=== PATIENT | female | born 1960 | race Caucasian/White ===

== ENCOUNTER → 2016-04-12 | Outpatient (CLI) | payer OTHER ==
[~2016-04-12] VITALS: Ht 157.5 cm; Wt 52.6 kg
[~2016-04-12] MED LIST: CALCIUM 500 +1 EAC2 PO; CYMBALTA30 MG PO; CYMBALTA60 MG PO; DESYREL 150 MG150 MG PO; ERGOCALCIF50000 UNIT PO; KLONOPIN1 MG PO; KLONOPIN2 M1 PO; KLONOPIN2 MG PO; PLAQUENIL200 MG PO; TOPAMAX100 MG PO; TRAZAMINE CONVE50 MG; VIBRAMYCIN100 MG PO; WELLBUTRIN SR150 MG PO; WELLBUTRIN XL300 MG PO; [UNRECOGNIZED DRUG - REMARK]
== END | disposition home or self-care (01) ==
LOC: AMB 06:51
DX: Z12.11 Encounter for screening for malignant neoplasm of colon (principal); R13.10 Dysphagia, unspecified; Z80.0 Family history of malignant neoplasm of digestive organs; K63.5 Polyp of colon; K62.1 Rectal polyp; F31.31 Bipolar disorder, current episode depressed, mild; I10 Essential (primary) hypertension; M06.9 Rheumatoid arthritis, unspecified; F17.200 Nicotine dependence, unspecified, uncomplicated; Z98.1 Arthrodesis status; Z82.49 Family history of ischemic heart disease and other diseases of the circulatory system; Z83.3 Family history of diabetes mellitus; Z83.49 Family history of other endocrine, nutritional and metabolic diseases; Z88.1 Allergy status to other antibiotic agents; Z88.2 Allergy status to sulfonamides; Z88.5 Allergy status to narcotic agent
CPT/HCPCS: 88305; 93005; J3010

== ENCOUNTER 2016-07-24 18:50 | Emergency (ER) | payer OTHER ==
[~2016-07-24] VITALS: Ht 157.5 cm; Wt 54.2 kg
[2016-07-24 19:59] LABS: HEMATOCRIT 39.5 % (36.0-46.0); MCH 28.6 PG (29.0-34.0); MCHC 33.4 G/DL (30.0-36.0); MCV 85.7 FL (83-99); MEAN PLAT.VOLUME 9.8 uM^3 (9.5-12.4); PLATELET COUNT 185 K/uL (156-360); RBC DIS.WIDTH-CV 12.1 % (11.8-14.6); RBC DIS.WIDTH-SD 37.9 % (39-53); RED BLOOD COUNT 4.61 M/uL (3.80-5.20); WHITE BLOOD COUNT 7.4 K/uL (4.1-10.2)
[2016-07-24 20:09] LABS: ADD MIUA? YES; BILIRUBIN NEGATIVE; BLOOD NEGATIVE; COLOR YELLOW ((YELLOW)); GLUCOSE (STRIP) NEGATIVE; KETONES NEGATIVE; LEUKOCYTES SMALL; NITRITE NEGATIVE; PROTEIN (STRIP) NEGATIVE; SPECIFIC GRAVITY 1.009 (1.000-1.030); UROBILINOGEN 0.2 MG/DL (0.2-1.0)
[2016-07-24 20:15] LABS: BACTERIA NONE SEEN /HPF; EPITHELIAL CELLS NONE SEEN /HPF; MUCUS TRACE /LPF; RED BLOOD CELLS 0-5 /HPF (0-5); WHITE BLOOD CELLS 0-5 /HPF (0-5)
[2016-07-24 20:33] LABS: CHLORIDE 105 mEq/L (99-109); POTASSIUM 3.5 mEq/L (3.7-5.4); SODIUM 138 mEq/L (136-147)
[2016-07-24 20:35] LABS: GLUCOSE 85 mg/dL (70-99)
[2016-07-24 20:37] LABS: ANION GAP 9 MEQ/L (2-14); TOTAL BILIRUBIN 0.4 mg/dL (0.0-1.0)
[2016-07-24 20:39] LABS: ALKALINE PHOSPHATASE 61 IU/L (3-129); GFR ESTIMATE (CALCULATED) 50 mL/min/
[2016-07-24 20:40] LABS: UREA NITROGEN (BUN) 12 mg/dL (9-23)
[2016-07-24 20:42] LABS: LIPASE 28 U/L (1.0-51.0)
[2016-07-24 21:57] VITALS: BP 132/73
== END 2016-07-24 21:59 | disposition home or self-care (01) ==
LOC: EME 18:50
PROVIDERS: Physician Assistant
DX: K80.20 Calculus of gallbladder without cholecystitis without obstruction (principal); K59.00 Constipation, unspecified; I12.9 Hypertensive chronic kidney disease with stage 1 through stage 4 chronic kidney disease, or unspecified chronic kidney disease; N18.3 Chronic kidney disease, stage 3 (moderate); K21.9 Gastro-esophageal reflux disease without esophagitis; F41.9 Anxiety disorder, unspecified; R56.9 Unspecified convulsions; Z87.891 Personal history of nicotine dependence; Z86.73 Personal history of transient ischemic attack (TIA), and cerebral infarction without residual deficits
CPT/HCPCS: 74176; 80053; 81003; 83690; 85027; 99281; 99284; J3010

== ENCOUNTER → 2016-11-15 | Outpatient (CLI) | payer MEDICARE, OTHER | END | disposition home or self-care (01) | LOC: CDC | DX: Z01.810 Encounter for preprocedural cardiovascular examination (principal); K80.20 Calculus of gallbladder without cholecystitis without obstruction | CPT/HCPCS: 93000 ==

== ENCOUNTER 2016-11-21 10:06 | Day surgery (SDC) | payer OTHER ==
[~2016-11-21] VITALS: Ht 157.5 cm; Wt 53.5 kg
[~2016-11-21 10:06] MED LIST changes: +ASPIR 8181 M1 PO; +LINZESS290 MCG PO; +REGLAN10 MG PO
[2016-11-21 10:38] VITALS: BP 122/60
[2016-11-21] MEDS ORDERED: PERCOCET 5/31 TABLET PO (13:06)
[2016-11-21 14:07] VITALS: BP 138/67
[2016-11-21 14:53] VITALS: BP 152/70
== END 2016-11-21 14:53 | disposition home or self-care (01) ==
LOC: SDC
PROC: 0FT44ZZ Resection of Gallbladder, Percutaneous Endoscopic Approach (ICD-10-PCS; principal; 2016-11-21)
DX: K80.10 Calculus of gallbladder with chronic cholecystitis without obstruction (principal); M54.16 Radiculopathy, lumbar region; M32.9 Systemic lupus erythematosus, unspecified; K21.9 Gastro-esophageal reflux disease without esophagitis; Z85.828 Personal history of other malignant neoplasm of skin; Z79.82 Long term (current) use of aspirin; Z72.0 Tobacco use; Z88.0 Allergy status to penicillin
CPT/HCPCS: 88304; J0690; J1100; J1170; J2250; J2405; J3010; Q0175